=== PATIENT | female | born 1985 | race Caucasian/White ===

== ENCOUNTER 2016-07-08 08:00 | Emergency (ER) | payer BC ==
[~2016-07-08] VITALS: Ht 172.7 cm; Wt 99.0 kg
[~2016-07-08 08:00] MED LIST: IBUPROFEN800 MG PO; PRENATAL TABLE1 EAC3 PO; ZOLOFT100 MG PO
[2016-07-08 08:01] VITALS: BP 142/922
[2016-07-08] MEDS ORDERED: BENADRYL25 MG PO (09:17)
== END 2016-07-08 10:14 | disposition home or self-care (01) ==
LOC: EME 08:00
DX: L50.9 Urticaria, unspecified (principal); F17.200 Nicotine dependence, unspecified, uncomplicated
CPT/HCPCS: 99281; 99283